=== PATIENT | male | born 2000 | race Caucasian/White ===

== ENCOUNTER 2022-02-05 22:43 | Emergency (ER) | payer BC ==
[~2022-02-05] VITALS: Ht 177.8 cm; Wt 72.7 kg
[2022-02-06 00:40] VITALS: BP 125/71; PULSE 79; TEMP 98.4
== END 2022-02-06 00:40 | disposition home or self-care (01) ==
LOC: COL.ER 22:43
DX: S01.81XA Laceration without foreign body of other part of head, initial encounter (principal); Z28.310 Unvaccinated for COVID-19; Y04.8XXA Assault by other bodily force, initial encounter